=== PATIENT | female | born 1945 | race Caucasian/White ===

== ENCOUNTER 2019-06-19 09:39 | Observation (INO) | payer BC ==
[2019-06-19] MEDS ORDERED: MORPHINE SULFATE 5 MG/ML VIAL IVP ONE ×2 (09:46→10:49)
--- NOTE | 2019-06-19 09:52 | Emergency Department Record ---
History of Present Illness - General Chief Complaint: Back Pain/Injury Stated Complaint: BACK PAIN Time Seen by Provider: 06/19/19 09:45 Source: Patient, Family Mode of Arrival: Wheelchair Limitations: No limitations - History of Present Illness Initial Comments: 73 yo female presents with lower back pain that started yesterday. She felt the onset when she tried to stand up getting out of a chair. The pain has been present since that time. The pain is located in the lower lumbar area and radiates down the right leg at times. No numbness or tingling. No weakness. No radiation to the abdomen. No prior history of back surgery. No other recent changes in her health. She had an FL 7 months ago. Complaint: Back pain -: Days(s) (1) Place: Home Radiation: Right leg Quality: Aching, Sharp Consistency: Constant Improves With: Immobilization Worsens With: Movement, Sitting upright Context: Other (Onset when standing up from a chair yesterday) - Related Data Home Medications Medication Instructions Recorded Confirmed Last Taken Amlodipine Besylate [Norvasc] 1 tab PO DAILY 06/19/19 06/19/19 1 Day Ago ~06/18/19 1 Aspirin 1 tab PO DAILY 06/19/19 06/19/19 1 Day Ago ~06/18/19 1 Carvedilol [Coreg] 1 tab PO DAILY 06/19/19 06/19/19 1 Day Ago ~06/18/19 1 tab Cyclobenzaprine HCl [Flexeril] 1 tab PO DAILY PRN 06/19/19 06/19/19 1 Day Ago ~06/18/19 1 Furosemide [Lasix] 1 tab PO DAILY 06/19/19 06/19/19 1 Day Ago ~06/18/19 20 mg Levothyroxine Sodium 50 mcg PO 06/19/19 06/19/19 50 mcg Omeprazole [Prilosec] 1 tab PO DAILY 06/19/19 06/19/19 06/19/19 1 tab Rosuvastatin Calcium 1 tab PO DAILY 06/19/19 06/19/19 1 Day Ago ~06/18/19 1 Allergies Allergy/AdvReac Type Severity Reaction Status Date / Time Sulfa (Sulfonamide Allergy Intermediate SWELLING Verified 06/19/19 09:51 Antibiotics) OF THE FACE Review of Systems Constitutional: Denies: Chills, Fever, Malaise, Weakness Eyes: Denies: Eye discharge ENT: Denies: Congestion, Throat pain Respiratory: Denies: Cough, Dyspnea, Hemoptysis, Stridor, Wheezes Cardiovascular: Denies: Chest pain, Palpitations, Syncope Endocrine: Denies: Fatigue, Polydipsia, Polyuria Gastrointestinal: Denies: Abdominal pain, Diarrhea, Nausea, Vomiting Genitourinary: Denies: Dysuria, Hematuria, Urgency Musculoskeletal: Reports: Back pain, Myalgia. Denies: Arthralgia, Joint swelling Skin: Denies: Bruising, Change in color, Rash Neurological: Denies: Headache, Numbness, Tingling, Weakness Psychiatric: Denies: Anxiety Hematological/Lymphatic: Denies: Easy bleeding, Easy bruising Physical Exam - General General Appearance: Alert, Oriented x3, Cooperative, No acute distress Limitations: No limitations - Head Head exam: Atraumatic, Normocephalic, Normal inspection - Eye Eye exam: Normal appearance, PERRL. negative: Conjunctival injection, Scleral icterus - ENT ENT exam: Normal exam, Mucous membranes moist Ear exam: Normal external inspection Nasal Exam: Normal inspection Mouth exam: Normal external inspection - Neck Neck exam: Normal inspection - Respiratory Respiratory exam: Normal lung sounds bilaterally. negative: Accessory muscle use, Decreased breath sounds, Prolonged expiratory, Respiratory distress, Rhonchi, Stridor, Wheezes - Cardiovascular Cardiovascular Exam: Regular rate, Normal rhythm, Normal heart sounds - GI/Abdominal GI/Abdominal exam: Soft, Normal bowel sounds. negative: Distended, Guarding, Pulsatile mass, Rebound, Rigid, Tenderness - Rectal Rectal exam: Deferred - exam: Deferred - Extremities Extremities exam: Normal inspection, Full ROM. negative: Calf tenderness, Pedal edema, Tenderness - Back Back exam: Reports: Muscle spasm, Paraspinal tenderness, Tenderness, Vertebral tenderness (lower lumbar). Denies: CVA tenderness (R), CVA tenderness (L), Full ROM - Neurological Neurological exam: Alert, Oriented X3. negative: Motor sensory deficit (sensation intact bilateral distal lower extremities, Motor intact with EHL and foot flexion and extension) - Psychiatric Psychiatric exam: Normal affect, Normal mood - Skin Skin exam: Dry, Intact, Normal color, Warm Course - Reevaluation(s) Reevaluation #1: 06/19/19 10:29 The CBC was reviewed No acute significant abnormality 06/19/19 10:34 BMP reviewed. CR is 1.1 06/19/19 10:50 The patient was rechecked after CT. Her pain is not controlled after moving around for the CT. She has pain with rotating, sitting up 06/19/19 11:00 The patient now has epigatric pain. No chest pain. EKG ordered. Pain 6/10 in the back in the lumbar area. The epigastric area is very soft but mild tenderness in the LUQ. The lumbar pain is still completely reproducible with and movement or leg lift. Lumber pain with lifting the right leg 6 inches off the bed 06/19/19 11:10 EKG #1: 11:12 Rate: 90 Rhythm: sinus with PVC [place]: L Intervals: Qtc 481 ST segments: poor R wave progression, inverted lateral T waves. No ST elevation Prior: None on EMR Request for old EKG at [facility] made. 06/19/19 11:20 Lumbar pain down from 10 to 4/10 06/19/19 11:26 Prior EKG found in the paper file Similar Q waves inferior and poor R wave anterior with non specific lateral T waves on April 14 2008 EKG. No significant changes. 06/19/19 12:10 CT was reviewed. Spinal stenosis at L4-L5 with questionable irregular area at L3, Diverticuosis, liver cysts. The results were discussed with the patient with The need to follow up the results with her PCP and possible follow up MRI. The patient still has difficulty to stand or do a safe ADL with her pain and she lives alone I recommend admission for pain control and PT evaluation Medical Decision Making - Lab Data Result diagrams: 06/19/19 10:10 06/19/19 10:10 Disposition Disposition: Admit Clinical Impression: Lumbar pain, Sciatica, Intractable low back pain Disposition: Still a Patient at [facility] Decision to Admit: Admit from ER Decision to Admit Date: 06/19/19 Decision to Admit Time: 12:00 Condition: (2) Stable Forms: Patient Portal Access Time of Disposition: 12:46 Quality - Quality Measures Quality Measures: N/A - Blood Pressure Screening Does Patient Have Any of the Following: Active Dx of HTN Blood Pressure Classification: Hypertensive Reading Systolic Measurement: 154 Diastolic Measurement: 93 Screening for High Blood Pressure: Patient Exclusion, Hx of HTN [[id number]]
[2019-06-19 10:20] LABS: ABSOLUTE NEUTROPHIL COUNT 5.08; BASO % 0.5 % (0-6); EOS % 2.3 % (0-6); GRAN % 69.8 % (47-80); HEMATOCRIT 38.8 % (35.0-47.0); HEMOGLOBIN 12.4 gm/dl (11.6-16.0); LYMPH % 18.5 % (16-45); MEAN CORPUSCULAR HEMOGLOBIN 29.7 pg (27-33); MEAN PLATELET VOLUME 11.1 fl (7.4-10.4); MONO % 8.9 % (0-9); PLATELET COUNT 202 K/uL (130-400); RED BLOOD COUNT 4.17 M/uL (3.80-5.40); RED CELL DISTRIBUTION WIDTH 15.4 % (11.5-14.5); WHITE BLOOD COUNT W/O DIFF 7.3 K/uL (4.2-12.2)
[2019-06-19 10:28] LABS: CREATININE 1.1 mg/dL (0.5-0.9)
[2019-06-19] MEDS ORDERED: ACETAMINOPHEN 1,000 MG/100 ML BTL IVPB ONE (10:49)
[2019-06-19] MEDS ORDERED: MORPHINE SULFATE 5 MG/ML VIAL IVP PRN (13:15)
--- NOTE | 2019-06-19 13:25 | History & Physical ---
History of Present Illness - Date of Service Date of Service for History & Physical: 06/21/19 - History of Present Illness Admitting Diagnosis: sciatica, intractable back pain History of Present Illness: 73 yo female presents to [facility] ER for back pain x 2 days but worsening this AM and now not able to bear wgt. Pt lives alone, was able to get up this AM to urinate but not able to ambulates. pt called grandsons and they brought her by private vehicle to [facility] ER. 97.8l, HR 96, BP 154/93, RR 20, 100% RA, 8/10pain WBC 7.3, Hgb 12.4, Hct 38.8, Plt 202 Na 142, K 3.5, Cl 102, CO2 24, Anion Gap16, BUn 1.1, GFR 51, glucose 107 CT abd pelvis shows DDD, possible lesion to L2, recommending MRI follow up (PCP) and hepatic lesions also recommended MRI or CT with contrast (PCP) Pt given morphine 2mg for pain and reports improvement but right leg weak. Admit for pain control and unable to ambulate and lives alone 06/20/19 -Pt in bed, appears in mild distress, able to lift both right and left leg off the bed but right leg weakness noted, pain with extension and positive straight leg lift. No tenderness midline or paraspinal muscles but very TTP right sacral notch. Lungs CTA, heart RRR. No edema to lower extremities. POC pain medication, PT eval. UA ordered to r/o UTI [facility] Travel Screening - Travel/Exposure Within Last 30 Days Have you traveled within the last 30 days?: No - Travel/Exposure Within Last Year Have you traveled outside the [place] in the last year?: No - Additonal Travel Details Have you been exposed to anyone with a communicable illness?: No - Travel Symptoms Symptom Screening: Joint & Muscle Aches Review of Systems Constitutional: Denies: Chills, Fever, Malaise, Weakness Eyes: Denies: Eye discharge ENT: Denies: Congestion, Throat pain Respiratory: Denies: Cough, Dyspnea, Hemoptysis, Stridor, Wheezes Cardiovascular: Denies: Chest pain, Palpitations, Syncope Endocrine: Denies: Fatigue, Polydipsia, Polyuria Gastrointestinal: Denies: Abdominal pain, Diarrhea, Nausea, Vomiting Genitourinary: Denies: Dysuria, Hematuria, Urgency Musculoskeletal: Reports: Back pain, Myalgia. Denies: Arthralgia, Joint swelling Skin: Denies: Bruising, Change in color, Rash Neurological: Denies: Headache, Numbness, Tingling, Weakness Psychiatric: Denies: Anxiety Hematological/Lymphatic: Denies: Easy bleeding, Easy bruising Past Medical History - SOCIAL HISTORY Smoking Status: Never smoker Alcohol Use: None Drug Use: None - RESPIRATORY Hx Respiratory Disorders: No - CARDIOVASCULAR Hx Cardio Disorders: Yes Hx Heart Attack: Yes (11/09/18) - NEURO Hx Neuro Disorders: No - GI Hx GI Disorders: Yes Hx Reflux: Yes - Hx Genitourinary Disorders: No - ENDOCRINE Hx Endocrine Disorders: Yes Hx Thyroid Disease: Yes - MUSCULOSKELETAL Hx Musculoskeletal Disorders: No - PSYCH Hx Psych Problems: No - HEMATOLOGY/ONCOLOGY Hx Hematology/Oncology Disorders: No Family Medical History Any Significant Family History?: No H&P Meds/Allergies - Allergies Allergies: Allergies Allergy/AdvReac Type Severity Reaction Status Date / Time Sulfa (Sulfonamide Allergy Intermediate SWELLING Verified 06/19/19 09:51 Antibiotics) OF THE FACE - Home Medications Home Medications Medication Instructions Recorded Confirmed Last Taken Amlodipine Besylate [Norvasc] 5 mg PO DAILY 06/19/19 06/21/19 1 Day Ago ~06/18/19 1 Aspirin 81 mg PO QHS 06/19/19 06/21/19 1 Day Ago ~06/18/19 1 Carvedilol [Coreg] 6.25 mg PO DAILY 06/19/19 06/21/19 1 Day Ago ~06/18/19 1 tab Cyclobenzaprine HCl [Flexeril] 10 mg PO DAILY PRN 06/19/19 06/21/19 1 Day Ago ~06/18/19 1 Furosemide [Lasix] 20 mg PO DAILY 06/19/19 06/21/19 1 Day Ago ~06/18/19 20 mg Levothyroxine Sodium 50 mcg PO DAILY 06/19/19 06/19/19 06/19/19 21:47 50 MCG Omeprazole [Prilosec] 20 mg PO DAILYAC 06/19/19 06/21/19 06/19/19 1 tab Rosuvastatin Calcium 5 mg PO QHS 06/19/19 06/21/19 1 Day Ago ~06/18/19 1 - Active Medications Active Medications: Current Medications Amlodipine Besylate (Norvasc) mg PO DAILY [facility] Aspirin (Aspirin Chewable) mg PO DAILY [facility] Cyclobenzaprine HCl (Flexeril) mg PO DAILY PRN PRN Reason: MUSCLE SPASMS Furosemide (Lasix) mg PO DAILY [facility] Acetaminophen (Ofirmev) 1,000 mg in 100 mls @ 400 mls/hr IVPB Q6H [facility] Morphine Sulfate (Morphine Sulfate) 4 mg IVP Q4H PRN PRN Reason: PAIN - MILD (1-4) Stop: 06/26/19 13:16 Non-Formulary Medication (Carvedilol [Coreg]) 1 tab PO DAILY [facility] Non-Formulary Medication (Omeprazole) 1 tab PO DAILY [facility] Non-Formulary Medication (Rosuvastatin Calcium [Rosuvastatin Calcium]) 1 tab PO DAILY [facility] Physical Exam - Vital Signs Vital Signs: Vital Signs - Last 24 Hrs Temp Pulse Pulse Resp BP BP Pulse Ox 06/19/19 11:08 98.4 F 91 H 20 149/86 97 06/19/19 10:58 89 20 142/99 99 06/19/19 10:00 97.8 F 96 H 20 154/93 100 06/19/19 09:46 97.8 F 96 H 20 154/93 100 - General General Appearance: Alert, Oriented x3, Cooperative, Mild distress Limitations: No limitations - Head Head exam: Atraumatic, Normocephalic, Normal inspection - Eye Eye exam: Normal appearance, PERRL. negative: Conjunctival injection, Scleral icterus - ENT ENT exam: Normal exam, Mucous membranes moist Ear exam: Normal external inspection Nasal Exam: Normal inspection Mouth exam: Normal external inspection - Neck Neck exam: Normal inspection - Respiratory Respiratory exam: Normal lung sounds bilaterally. negative: Accessory muscle use, Decreased breath sounds, Prolonged expiratory, Respiratory distress, Rhonchi, Stridor, Wheezes - Cardiovascular Cardiovascular Exam: Regular rate, Normal rhythm, Normal heart sounds Peripheral Pulses: 3+: Radial (R), Radial (L), Dorsalis Pedis (R), Dorsalis Pedis (L) - GI/Abdominal GI/Abdominal exam: Soft, Normal bowel sounds. negative: Distended, Guarding, Pulsatile mass, Rebound, Rigid, Tenderness - Rectal Rectal exam: Deferred - exam: Deferred - Extremities Extremities exam: Normal inspection, Full ROM. negative: Calf tenderness, Pedal edema, Tenderness - Back Back exam: Reports: Muscle spasm, Tenderness (right sacral notch), Vertebral tenderness (lower lumbar). Denies: CVA tenderness (R), CVA tenderness (L), Full ROM, Paraspinal tenderness - Neurological Neurological exam: Alert, Oriented X3. negative: Motor sensory deficit (sensation intact bilateral distal lower extremities, Motor intact with EHL and foot flexion and extension) - Psychiatric Psychiatric exam: Normal affect, Normal mood - Skin Skin exam: Dry, Intact, Normal color, Warm Results - Labs Result Diagrams: 06/19/19 10:10 06/19/19 10:10 Labs Last 24 Hours: Laboratory Results - last 24 hr 06/19/19 06/19/19 10:10 10:10 WBC 7.3 RBC 4.17 Hgb 12.4 Hct 38.8 MCV 93.0 MCH 29.7 MCHC 32.0 RDW 15.4 H Plt Count 202 MPV 11.1 H Gran % 69.8 Lymphocytes % 18.5 Monocytes % 8.9 Eosinophils % 2.3 Basophils % 0.5 Absolute Neutrophils 5.08 Sodium 142 Potassium 3.5 Chloride 102 Carbon Dioxide 24.0 Anion Gap 16.0 BUN 15 Creatinine 1.1 H Estimated GFR 51 Random Glucose 107 Calcium 9.8 VTE H&P Assessment - Risk for VTE Risk for VTE: Yes Risk Level: Moderate Risk Assessment Date: 06/19/19 Risk Assessment Time: 15:00 VTE Orders Placed or Will Be Placed: Yes Plan - Detailed Diagnosis and Plan (1) Intractable low back pain Current Visit: Yes Status: Acute Base Code: M54.5 - LOW BACK PAIN Comment: 06/19/19 -pt reported sudden onset low back pain starting within 24 hrs of arriving to ER -pt denies previous injury, no recent fall or strain -CT back shows DDD with possible T3 lesion, recomend MRI for follow up (PCP) -pt given morphine for pain in ER, but unable to ambualte r/t pain (2) Sciatica Current Visit: Yes Status: Acute Base Code: M54.30 - SCIATICA, UNSPECIFIED SIDE Comment: 06/19/19 -pt has radiating right sided pain, radiating down buttock and lateral leg -adding gabapentin 300mg QHS, cont morphine with addition of gabapentin (3) DVT prophylaxis Current Visit: Yes Status: Acute Base Code: Z29.9 - ENCOUNTER FOR PROPHYLACTIC MEASURES, UNSPECIFIED Comment: 06/19/19 -lovenox 30mg SQ (lower dose r/t kidney function) (4) Full code status Current Visit: Yes Status: Acute Base Code: Z78.9 - OTHER SPECIFIED HEALTH STATUS Comment: 06/19/19 -full code
[2019-06-19] MEDS: ACETAMINOPHEN 1,000 MG/100 ML BTL IVPB SCH ×2 (14:15→20:29)
[2019-06-19] MEDS: PREDNISONE 20 MG TAB PO SCH (14:38)
[2019-06-19 14:39] LABS: URINE APPEARANCE CLEAR; URINE BILIRUBIN NEGATIVE (NEGATIVE); URINE BLOOD TRACE-I (NEGATIVE); URINE COLOR YELLOW; URINE GLUCOSE (UA) NEGATIVE (NEGATIVE); URINE KETONE TRACE (NEGATIVE); URINE NITRITE NEGATIVE (NEGATIVE); URINE PROTEIN NEGATIVE (NEGATIVE)
[2019-06-19 14:44] LABS: URINE LEUKOCYTE ESTERASE TRACE (NEGATIVE)
[2019-06-19 14:46] LABS: URINE BACTERIA NONE SEEN; URINE RBC 0 - 2 (NONE SEEN); URINE WBC 0 - 2 (0-2/hpf)
[2019-06-19] MEDS: CYCLOBENZAPRINE 10MG TABLET PO PRN (18:11)
[2019-06-19] MEDS: CARVEDILOL 3.125 MG TABLET PO SCH (21:41)
[2019-06-19] MEDS ORDERED: GABAPENTIN 300 MG CAPSULE PO SCH (22:00)
[2019-06-20] MEDS: ACETAMINOPHEN 1,000 MG/100 ML BTL IVPB SCH ×4 (01:37→19:37)
[2019-06-20] MEDS: PREDNISONE 20 MG TAB PO SCH (07:03)
[2019-06-20] MEDS: PANTOPRAZOLE SODIUM 40 MG TABLET PO SCH (07:03)
[2019-06-20] MEDS: LEVOTHYROXINE SODIUM 50 MCG TABLET PO SCH (07:03)
[2019-06-20] MEDS: CARVEDILOL 3.125 MG TABLET PO SCH (09:25)
[2019-06-20] MEDS: FUROSEMIDE 20 MG TABLET PO SCH (09:25)
[2019-06-20] MEDS: AMLODIPINE BESYLATE 5MG TAB PO SCH (09:26)
[2019-06-20] MEDS: ATORVASTATIN 20 MG TABLET PO SCH ×2 (09:26→22:01)
[2019-06-20] MEDS: ENOXAPARIN 30 MG/0.3 ML SYR SQ SCH (09:26)
[2019-06-20] MEDS ORDERED: ASPIRIN 81 MG CHEWABLE TABLET PO SCH (10:00)
--- NOTE | 2019-06-20 10:54 | Physician Progress Note ---
Subjective - Date Date of Physician Progress Note: 06/21/19 - Subjective Subjective Comment: pt reports pain is improving but still needing assistance up, out of bed and to the toilet -pt still radiating down the right side of leg but has improved since addition of gabapentin yesterday Objective - Vital Signs Vital Signs: Vital Signs - Last 24 Hrs Temp Pulse Resp BP Pulse Ox 06/20/19 05:00 97.8 F 87 18 120/77 96 06/19/19 19:51 98.1 F 100 H 18 128/71 97 06/19/19 15:13 57 L 18 06/19/19 12:58 98.0 F 57 L 18 124/79 97 06/19/19 11:08 98.4 F 91 H 20 149/86 97 06/19/19 10:58 89 20 142/99 99 - General General Appearance: Alert, Oriented x3, Cooperative, No acute distress Limitations: No limitations - Head Head exam: Atraumatic, Normocephalic, Normal inspection - Eye Eye exam: Normal appearance, PERRL. negative: Conjunctival injection, Scleral icterus - ENT ENT exam: Normal exam, Mucous membranes moist Ear exam: Normal external inspection Nasal Exam: Normal inspection Mouth exam: Normal external inspection - Neck Neck exam: Normal inspection - Respiratory Respiratory exam: Normal lung sounds bilaterally. negative: Accessory muscle use, Decreased breath sounds, Prolonged expiratory, Respiratory distress, Rhonchi, Stridor, Wheezes - Cardiovascular Cardiovascular Exam: Regular rate, Normal rhythm, Normal heart sounds - GI/Abdominal GI/Abdominal exam: Soft, Normal bowel sounds. negative: Distended, Guarding, Pulsatile mass, Rebound, Rigid, Tenderness - Rectal Rectal exam: Deferred - exam: Deferred - Extremities Extremities exam: Normal inspection, Full ROM. negative: Calf tenderness, Pedal edema, Tenderness - Back Back exam: Reports: Muscle spasm, Paraspinal tenderness, Tenderness, Vertebral tenderness (lower lumbar). Denies: CVA tenderness (R), CVA tenderness (L), Full ROM - Neurological Neurological exam: Alert, Oriented X3. negative: Motor sensory deficit (sensation intact bilateral distal lower extremities, Motor intact with EHL and foot flexion and extension) - Psychiatric Psychiatric exam: Normal affect, Normal mood - Skin Skin exam: Dry, Intact, Normal color, Warm Assessment and Plan - Assessment and Plan (1) Intractable low back pain Current Visit: Yes Status: Acute Base Code: M54.5 - LOW BACK PAIN Comment: 06/19/19 -pt reported sudden onset low back pain starting within 24 hrs of arriving to ER -pt denies previous injury, no recent fall or strain -CT back shows DDD with possible T3 lesion, recomend MRI for follow up (PCP) -pt given morphine for pain in ER, but unable to ambualte r/t pain 06/20/19 -pt reports better pain control with gabapentin but still painful to ambulate and TTP -gabapenting increased to BID, pt continues to need morphine for pain upon returning from wgt bearing -PT eval tomorrow (2) Sciatica Current Visit: Yes Status: Acute Base Code: M54.30 - SCIATICA, UNSPECIFIED SIDE Comment: 06/19/19 -pt has radiating right sided pain, radiating down buttock and lateral leg -adding gabapentin 300mg QHS, cont morphine with addition of gabapentin 06/20/19 -pt reports gabapentin has helped pain but not resolved or controlled enough to perform ADLs -increase gabapentin 300mg BID (3) DVT prophylaxis Current Visit: Yes Status: Acute Base Code: Z29.9 - ENCOUNTER FOR PROPHYLACTIC MEASURES, UNSPECIFIED Comment: 06/20/19 -lovenox 30mg SQ (lower dose r/t kidney function) (4) Full code status Current Visit: Yes Status: Acute Base Code: Z78.9 - OTHER SPECIFIED HEALTH STATUS Comment: 06/20/19 -full code Results - Labs Result Diagrams: 06/19/19 10:10 06/19/19 10:10 Labs Last 24 Hours: Laboratory Results - last 24 hr 06/19/19 14:30 Urine Color Yellow Urine Appearance Clear Urine pH 6.5 Ur Specific [place] 1.020 Urine Protein Negative Urine Glucose (UA) Negative Urine Ketones Trace H Urine Blood Trace-i Urine Nitrite Negative Urine Bilirubin Negative Urine Urobilinogen 4.0 H Ur Leukocyte Esterase Trace H Urine RBC 0 - 2 Urine WBC 0 - 2 Ur Epithelial Cells 3 - 6 Urine Bacteria None seen - Imaging and Cardiology CT scan - abdomen Status: Report reviewed DVT/PE Assessment - Risk for VTE Risk for VTE: Yes Risk Level: Moderate Risk Assessment Date: 06/19/19 Risk Assessment Time: 15:00 VTE Orders Placed or Will Be Placed: Yes - Active Medicaitons Current Medications: Current Medications Amlodipine Besylate (Norvasc) 5 mg PO DAILY [facility] Last Admin: 06/20/19 09:26 Dose: 5 mg Documented by: Aspirin (Aspirin Chewable) 81 mg PO DAILY [facility] Last Admin: 06/20/19 09:25 Dose: 81 mg Documented by: Atorvastatin Calcium (Lipitor) 20 mg PO QHS [facility] Last Admin: 06/20/19 09:26 Dose: Not Given Documented by: Carvedilol (Coreg) 6.25 mg PO DAILY [facility] Last Admin: 06/20/19 09:25 Dose: 6.25 mg Documented by: Cyclobenzaprine HCl (Flexeril) 10 mg PO DAILY PRN PRN Reason: MUSCLE SPASMS Last Admin: 06/19/19 18:11 Dose: 10 mg Documented by: Enoxaparin Sodium (Lovenox) 30 mg SQ DAILY [facility] Last Admin: 06/20/19 09:26 Dose: 30 mg Documented by: Furosemide (Lasix) 20 mg PO DAILY [facility] Last Admin: 06/20/19 09:25 Dose: 20 mg Documented by: Gabapentin (Neurontin) 300 mg PO QHS [facility] Last Admin: 06/19/19 21:40 Dose: 300 mg Documented by: Acetaminophen (Ofirmev) 1,000 mg in 100 mls @ 400 mls/hr IVPB Q6H [facility] Last Infusion: 06/20/19 07:25 Dose: Infused Documented by: Levothyroxine Sodium (Synthroid) 50 mcg PO DAILYTHY [facility] Last Admin: 06/20/19 07:03 Dose: 50 mcg Documented by: Morphine Sulfate (Morphine Sulfate) 4 mg IVP Q4H PRN PRN Reason: PAIN - MILD (1-4) Stop: 06/26/19 13:16 Last Admin: 06/19/19 18:09 Dose: 4 mg Documented by: Pantoprazole Sodium (Protonix) 40 mg PO DAILYAC [facility] Last Admin: 06/20/19 07:03 Dose: 40 mg Documented by: Prednisone (Prednisone 20mg) 40 mg PO DAILYWM [facility] Last Admin: 06/20/19 07:03 Dose: 40 mg Documented by: AMI Plan - Labs Result Diagrams: 06/19/19 10:10 06/19/19 10:10
[2019-06-20] MEDS ORDERED: MORPHINE SULFATE 5 MG/ML VIAL IVP PRN (11:03)
[2019-06-20] MEDS: GABAPENTIN 300 MG CAPSULE PO SCH ×2 (11:10→22:01)
[2019-06-20] MEDS: CYCLOBENZAPRINE 10MG TABLET PO PRN (11:10)
--- NOTE | 2019-06-20 19:57 | CT SCAN REPORT ---
EXAM: CT SCAN ABDOMEN/PELVIS WO CONTRAST HISTORY: RIGHT-SIDED LOW BACK PAIN RADIATING TO THE RIGHT LEG. TECHNIQUE: CT of the abdomen and pelvis is performed without intravenous or oral contrast. COMPARISON: None. FINDINGS: Postsurgical changes right lung base. Lung bases otherwise unremarkable. Multiple low-density liver lesions are present, which are not optimally assessed without contrast. These may represent cysts. Contrast-enhanced CT or MRI may be of benefit for further assessment. Liver otherwise unremarkable. Spleen unremarkable. No pancreatic mass or inflammatory change. The bile ducts are not dilated. Gallbladder is surgically absent. There is no adrenal lesion seen. There are no renal or ureteral calculi. No hydronephrosis. No perinephric mass or fluid collection. There are atherosclerotic changes in the abdominal aorta. There is no aneurysm. No periaortic mass or adenopathy. There is a retroaortic left renal vein. There are no dilated bowel loops. There is no CT evidence for appendicitis. There is diverticulosis without CT evidence for diverticulitis. There are arthritic changes in the lumbar spine with anterior subluxation of L4 on L5. There is spinal stenosis seen at the L4-5 level. There is a round lesion identified in the right L3 vertebral body. This measures about 12 mm in size. This could represent a hemangioma. Other lesions not excluded. MRI could be performed for further assessment. IMPRESSION: 1. NO ACUTE ABDOMINAL OR PELVIC PROCESS IDENTIFIED. 2. SPINAL STENOSIS AT THE L4-5 LEVEL. 3. ARTHRITIC CHANGES IN THE LUMBAR SPINE. POSSIBLE LESION IN THE L3 VERTEBRAL BODY. MRI COULD BE PERFORMED FOR FURTHER ASSESSMENT. 4. MULTIPLE HEPATIC LESIONS, LIKELY REPRESENTING CYSTS BUT NOT DEFINITIVELY ASSESSED WITHOUT CONTRAST. CONTRAST-ENHANCED EXAM OR MRI COULD BE PERFORMED. 5. POSTSURGICAL CHANGES RIGHT LUNG BASE. 6. DIVERTICULOSIS WITHOUT CT EVIDENCE FOR DIVERTICULITIS. 7. PLEASE SEE ABOVE FOR FULL DISCUSSION. JOB NUMBER: [id number] MTDD
[2019-06-21] MEDS: ACETAMINOPHEN 1,000 MG/100 ML BTL IVPB SCH ×3 (01:33→14:39)
[2019-06-21] MEDS: PREDNISONE 20 MG TAB PO SCH (07:15)
[2019-06-21] MEDS: LEVOTHYROXINE SODIUM 50 MCG TABLET PO SCH (07:16)
[2019-06-21] MEDS: PANTOPRAZOLE SODIUM 40 MG TABLET PO SCH (07:17)
[2019-06-21] MEDS: ENOXAPARIN 30 MG/0.3 ML SYR SQ SCH (09:39)
[2019-06-21] MEDS: GABAPENTIN 300 MG CAPSULE PO SCH (09:40)
[2019-06-21] MEDS: FUROSEMIDE 20 MG TABLET PO SCH (09:40)
[2019-06-21] MEDS: CARVEDILOL 3.125 MG TABLET PO SCH (09:40)
[2019-06-21] MEDS: AMLODIPINE BESYLATE 5MG TAB PO SCH (09:40)
--- NOTE | 2019-06-21 10:33 | Rehab Evaluation ---
Patient Information - Patient Information Diagnosis: Sciatica, intractable back pain Ordered Treatment: PT Evaluate and Treat Status: Initial Evaluation History: Detail (The patient presented in ED on 06/19/19 with complaints of lower back pain and was unable to walk.) Past Medical/Surgical Hx: PAST MEDICAL/SURGICAL HISTORY Past Surgical History hysterectomy, gallbladder, left and right shoulder,biopsy of lungs, bilateral cataracts PMH - Respiratory Hx Respiratory Disorders No Comment: bilateral lung biopsies PMH - Cardiovascular Hx Cardiovascular Disorders Yes Hx Cardiac Catheterization Yes: ?stent placed, dr owens Hx Heart Attack Yes: 11/09/18 PMH - Neuro Hx Neurological Disorders No PMH - GI Hx Gastrointestinal Disorders Yes Hx Gastroesophageal Reflux Yes PMH - Hx Genitourinary Disorders No Patient No PMH - Endocrine Hx Endocrine Disorders Yes Hx Diabetes No Hx Thyroid Disease Yes PMH - Musculoskeletal Hx Musculoskeletal Disorders No Hx Back Injury back pain PMH - Psych Hx Psychiatric Problems No PMH - Hematology/Oncology Hx Hematology/Oncology No Disorders Premorbid Status: Detail (Prior to admission the patient was ambulating independently without assistive device and completing all ADL's independently. The patient had assistance for some radiology rn including vaccuuming.) Social History: Detail (The patient lives alone in a one story house with a base ment with 3 steps at both enterances with one railing at the front enterance and a grab bar at the rear enterance. The bathroom the patient uses has a walk in shower with a seat and an elevated toilet seat. There are no grab bars in the bathroom. The patient has a 4 wheeled walker and a couple straight canes.) Precautions: [place], Fall, Other (Back pain precautions ie: no twisting, bending and log rolling with bed mobility) - Time With Patient Total Time Spent With Patient (Min): 30 Treatment Procedures: Detail (Initial Evaluation, low complexity.) Subjective Information - Subjective Information Per Patient (The patient complained of bilateral lower back pain L4 to S1 region. Initially the patient complained of R LE radiating pain, additionally to lower back pain.) Objective Data - Pain Pain Present: Yes Pain Intensity: 3 Pain Scale Used: Numeric (1 - 10) - Mental Status Patient Orientation: Oriented x3 - Visual Perception Appears within normal limits for therapeutic activities - ROM Within normal limits (The patient's LE AROM was WNL except for R ankle AROM to neutral.) - Strength/Tone Not within normal limits (The patient's L LE strength was generally 4+ to 5/5. The patient's R LE strength was 4-/5, knee extensors 4/5, flexors 4-/5, ankle musculature 3+ to 4-/5.) - Bed Mobility Independent (The patient was indpendent with supine to and from sit with verbal cues to log roll.) - Transfers Independent (The patient was independent with sit to and from stand transfer with slow guarded movements.) - Balance Balance Sitting: Good Balance Standing: Fair (Due to lower back pain the patient required the support of the walker for standing.) - Gait Detail (The patient ambulated 22 feet x 1 with front wheeled walker with supervision for safety. The patient ambulated with shuffling steps and slow gaurded movements.) Therapy Assessment - Therapy Assessment Detail (The patient is independent with mobility however all movements are slow and gaurded. The patient exhibits decreased R LE strength and ambulates limited distances due to lower back pain. Due to guarded movements and continued R LE strength deficits supervision at home is recommended. Ongoing Home PT is also recommended to assess the patient's safety of mobility at home and LE strengthening and core exercises, pain management techniques to decrease lower back pain. If the patient does not have someone to supervise her at home, short subacute rehab stay would be recommended.) Problem List - Problem List Physical Therapy Problem List: Detail (1) Decreased LE strength 2) Lumbar pain 3) Impaired ambulation due to Lumbar pain 4) Limited ambulation distances due to lumbar pain) Goals - Goals Physical Therapy Goals: 1) The patient will be independent with all transfers and bed mobility without gaurded movements. 2) The patient will ambulate household distances independently with appropriate assistive device without guarded movements. 3) The patient will ambulate on stairs independently using appropriate technique. Plan - Plan Physical Therapy Plan: PT daily M-F for gait and transfer training, pain management techniques for lower back pain,R LE strengthening and core exercises.
--- NOTE | 2019-06-21 10:42 | Rehab Evaluation ---
Patient Information - Patient Information Diagnosis: sciatica, intractable back pain Ordered Treatment: OT Evaluate and Treat Status: Initial Evaluation Surgery: No Past Medical/Surgical Hx: PAST MEDICAL/SURGICAL HISTORY Past Surgical History hysterectomy, gallbladder, left and right shoulder,biopsy of lungs, bilateral cataracts PMH - Respiratory Hx Respiratory Disorders No Comment: bilateral lung biopsies PMH - Cardiovascular Hx Cardiovascular Disorders Yes Hx Cardiac Catheterization Yes: ?stent placed, dr owens Hx Heart Attack Yes: 11/09/18 PMH - Neuro Hx Neurological Disorders No PMH - GI Hx Gastrointestinal Disorders Yes Hx Gastroesophageal Reflux Yes PMH - Hx Genitourinary Disorders No Patient No PMH - Endocrine Hx Endocrine Disorders Yes Hx Diabetes No Hx Thyroid Disease Yes PMH - Musculoskeletal Hx Musculoskeletal Disorders No Hx Back Injury back pain PMH - Psych Hx Psychiatric Problems No PMH - Hematology/Oncology Hx Hematology/Oncology No Disorders Premorbid Status: Detail (Pt lives alone in a 1 story house. She has 3 steps at both entrances with a hand rail at the front and a grab bar at the rear. She has a walk in shower with a seat and hand held shower as well as a tub/shower combination. She has an elevated toilet and a standard height toilet. There are no grab bars in the bathroom. She typicaly ambulates without an assistive device but has a 4 wheeled walker and multiple straight canes. She is responsible for laundry, meal prep, dishes, making her bed and light home mgmt. Her grand daughter assists with heavy housework and using the vacuum.) Social History: Detail (Pt has a supportive family.) Precautions: [place], Fall - Time With Patient Total Time Spent With Patient (Min): 25 Treatment Procedures: Detail (OT eval low complexity) Subjective Information - Subjective Information Per Patient Objective Data - Pain Pain Present: Yes (11/22) - Mental Status Patient Orientation: Oriented x3 - Visual Perception Appears within normal limits for therapeutic activities - ROM Not within normal limits (Shoaib UE AROM WNL with exception of right shoulder flexion which was limited to approx. 45 degrees due to injury from many years ago.) - Strength/Tone Not within normal limits (Left UE MMT 4+/5, right shoulder 3-/5, right elbow not tested as pt reports it will increase her shoulder pain, right editing clerk 4+/5) - Coordination Appears within normal limits for therapeutic activities - Bed Mobility Independent (Ind with supine to sit although pt had some increased pain with mobility.) - Transfers Independent (Ind with sit to stand with increased back pain) - Balance Balance Sitting: Good Balance Standing: Good - Sensation Intact (Intact sensation shoaib UEs) - Gait Detail (Pt able to walk a short distance with 2 wheeled walker before increase in back pain.) - ADL's/IADL's Detail (Pt able to demonstrate doffing and donning of slipper socks Indly. She reports she has been toileting with supervision from nursing.) Therapy Assessment - Therapy Assessment Detail (Pt presents with decreased Ind with self cares and functional mobility due to back pain.) Problem List - Problem List Occupational Therapy Problem List: Detail (1. Decreased Ind with self cares due to increased back pain) Goals - Goals Occupational Therapy Goals: 1. Pt will be Ind with total body dressing and showering Prognosis - Prognosis Good Plan - Plan Occupational Therapy Plan: OT 2-4 times per week to address self cares as above.
[2019-06-21] MEDS ORDERED: HYDROCODONE/APAP 5/325MG TABLET PO PRN (15:50)
--- NOTE | 2019-06-21 16:01 | Discharge Summary ---
Providers Discharge Summary Date: 06/21/19 Date of admission: 06/19/19 12:51 Expected Date of Discharge: 06/21/19 Attending physician: MALLORY MOODY Primary care physician: RADHA HASSAN D.O. Physical Exam - Vital Signs Vital Signs: Vital Signs - Last 24 Hrs Temp Pulse Pulse Resp BP Pulse Ox 06/21/19 08:02 70 06/21/19 05:00 97.7 F 79 18 106/50 98 06/20/19 21:00 78 18 96 - General General Appearance: Alert, Oriented x3, Cooperative, No acute distress Limitations: No limitations - Head Head exam: Atraumatic, Normocephalic, Normal inspection - Eye Eye exam: Normal appearance, PERRL. negative: Conjunctival injection, Scleral icterus - ENT ENT exam: Normal exam, Mucous membranes moist Ear exam: Normal external inspection Nasal Exam: Normal inspection Mouth exam: Normal external inspection - Neck Neck exam: Normal inspection - Respiratory Respiratory exam: Normal lung sounds bilaterally. negative: Accessory muscle use, Decreased breath sounds, Prolonged expiratory, Respiratory distress, Rhonchi, Stridor, Wheezes - Cardiovascular Cardiovascular Exam: Regular rate, Normal rhythm, Normal heart sounds Peripheral Pulses: 3+: Radial (R), Radial (L), Dorsalis Pedis (R), Dorsalis Pedis (L) - GI/Abdominal GI/Abdominal exam: Soft, Normal bowel sounds. negative: Distended, Guarding, Pulsatile mass, Rebound, Rigid, Tenderness - Rectal Rectal exam: Deferred - exam: Deferred - Extremities Extremities exam: Normal inspection, Full ROM. negative: Calf tenderness, Pedal edema, Tenderness - Back Back exam: Reports: Muscle spasm, Paraspinal tenderness, Tenderness, Vertebral tenderness (lower lumbar). Denies: CVA tenderness (R), CVA tenderness (L), Full ROM - Neurological Neurological exam: Alert, Oriented X3. negative: Motor sensory deficit (sensation intact bilateral distal lower extremities, Motor intact with EHL and foot flexion and extension) - Psychiatric Psychiatric exam: Normal affect, Normal mood - Skin Skin exam: Dry, Intact, Normal color, Warm Hospitalization - Hospitalization Admission Diagnosis: sciatica, intractable back pain - Problem List/Discharge Diagnosis (1) Intractable low back pain Current Visit: Yes Status: Acute Base Code: M54.5 - LOW BACK PAIN Comment: 06/21/19 -PT has evaluated, needs subacute rehab or home PT -pt has insurance issues with facilities taking her insurance, [employer] Supervisor attempting to find home health care as this facility does not take her insurance and pt has declined transfer to other facility -pain better controlled but right leg remains weaker 06/20/19 -pt reports better pain control with gabapentin but still painful to ambulate and TTP -gabapenting increased to BID, pt continues to need morphine for pain upon returning from [facility] -PT eval tomorro 06/19/19 -pt reported sudden onset low back pain starting within 24 hrs of arriving to ER -pt denies previous injury, no recent fall or strain -CT back shows DDD with possible T3 lesion, recomend MRI for follow up (PCP) -pt given morphine for pain in ER, but unable to ambualte r/t pain w (2) Sciatica Current Visit: Yes Status: Acute Base Code: M54.30 - SCIATICA, UNSPECIFIED SIDE Comment: 06/21/19 -pt reports improvment with BID gabapenting dosing -pt to f/u with home PT and PCP this week 06/20/19 -pt reports gabapentin has helped pain but not resolved or controlled enough to perform ADLs -increase gabapentin 300mg BID 06/19/19 -pt has radiating right sided pain, radiating down buttock and lateral leg -adding gabapentin 300mg QHS, cont morphine with addition of gabapentin (3) DVT prophylaxis Current Visit: Yes Status: Acute Base Code: Z29.9 - ENCOUNTER FOR [place] OPHYLACTIC MEASURES, UNSPECIFIED Comment: 06/21/19 -lovenox 30mg SQ (lower dose r/t kidney function) (4) Full code status Current Visit: Yes Status: Acute Base Code: Z78.9 - OTHER SPECIFIED HEALTH STATUS Comment: 06/21/19 -full code - Hospitalization Course Procedures: Imaging and X-Rays 06/19/19 10:21 ABDOMEN/PELVIS WO CONTRAST [CT] Stat Cardiology Procedures 06/19/19 10:49 Subsurface Augmentee Operator NOW 06/19/19 11:00 EKG NOW 06/19/19 13:15 Subsurface Augmentee Operator .Continuous Abnormal Labs: Abnormal Lab Results 06/19/19 06/19/19 06/19/19 Range/Units 10:10 10:10 14:30 RDW 15.4 H (11.5-14.5) % MPV 11.1 H (7.4-10.4) fl Creatinine 1.1 H (0.5-0.9) mg/dL Urine Ketones Trace H (NEGATIVE) Urine Urobilinogen 4.0 H (0.20 - 1.00) E.U./dL Ur Leukocyte Esterase Trace H (NEGATIVE) Condition at Discharge: (2) Stable Discharge Medications - Discharge Medications Prescriptions: Gabapentin [Neurontin] 300 mg PO BID 2 Days #4 capsule Hydrocodone/APAP 5/325Mg [Veneta 5Mg/325Mg] 1 each PO Q6H PRN 1 Days #3 tab PRN Reason: Pain - Mild To Moderate (1-7) Prednisone [Prednisone 20Mg] 40 mg PO DAILYWM 3 Days #3 tab Home Medications: Ambulatory Orders Amlodipine Besylate [Norvasc] 5 mg PO DAILY 06/19/19 [Last Taken 1 Day Ago ~06/18/19 1] Aspirin 81 mg PO QHS 06/19/19 [Last Taken 1 Day Ago ~06/18/19 1] Carvedilol [Coreg] 6.25 mg PO DAILY 06/19/19 [Last Taken 1 Day Ago ~06/18/19 1 tab] Cyclobenzaprine HCl [Flexeril] 10 mg PO DAILY PRN 06/19/19 [Last Taken 1 Day Ago ~06/18/19 1] Furosemide [Lasix] 20 mg PO DAILY 06/19/19 [Last Taken 1 Day Ago ~06/18/19 20 mg] Levothyroxine Sodium 50 mcg PO DAILY 06/19/19 [Last Taken 06/19/19 21:47 50 MCG] Omeprazole [Prilosec] 20 mg PO DAILYAC 06/19/19 [Last Taken 06/19/19 1 tab] Rosuvastatin Calcium 5 mg PO QHS 06/19/19 [Last Taken 1 Day Ago ~06/18/19 1] Gabapentin [Neurontin] 300 mg PO BID 2 Days #4 capsule 06/21/19 [Last Taken Unknown] Hydrocodone/APAP 5/325Mg [Veneta 5Mg/325Mg] 1 each PO Q6H PRN 1 Days #3 tab 06/21/19 [Last Taken Unknown] Prednisone [Prednisone 20Mg] 40 mg PO DAILYWM 3 Days #3 tab 06/21/19 [Last Taken Unknown] Discharge Plan - Discharge Instructions Activity at Discharge: As Per Physical Therapy, Increase Activity as Tolerated Diet at Discharge: Advance to Usual Diet Additional Instructions: You have a follow up appointment with Dr Hassan on 06/22/19 at 8:25am for 8:40 appointment [facility] health care will contact you regarding home health care. Your CT shows some areas that need more testing. It is recommended that you get a MRI to investigate the lesion on your back and the possible cysts on the liver. The CT was not able to identify what these were, that is why the MRI will help to get a better picture of these areas. You have been prescribed pain medication, gabapenting and norco. These are controlled substances, keep them in a secure place, do not share or give them to anyone, and do not drink alcohol while taking them. You are not allowed to drive when taking the norco. Quality Measures - Quality Measures Quality Measures: Advance Directives, Documentation of Current Medications in Medical Record, Elder Maltreatment Screen and Follow-Up Plan, Screening for High Blood Pressure and F/U Documented - Current Medications Quality Measure: Measure #130: Documentation of Current Medications Documentation of Current Medications: <Current Medications Documented/Reviewed> [G8427] - Blood Pressure Screening Quality Measure: Screening for High Blood Pressure and Follow-Up Documented Does Patient Have Any of the Following: Active Dx of HTN Blood Pressure Classification: Hypertensive Reading Systolic Measurement: 154 Diastolic Measurement: 93 Screening for High Blood Pressure: Patient Exclusion, Hx of HTN [G9744] - Advance Directives Quality Measure: Measure #47: Care Plan Advance Directives Established: No Advance Directives Information Provided To Patient: No Advance Directives on File: Yes Living Will: Yes Power of Operator Receptionist: Yes Power of Operator Receptionist Name: Naomi Nation Advance Care Planning: <Care Plan/Decision Maker Documented; Discussed & Documented> [1123F] - Elder Abuse Suspicion Index Screening: Elder Abuse Suspicion Index Screening Rely on people for bathing, dressing, shopping, banking, etc: No Prevented from getting food, clothes, medication, etc: No Made to feel shamed or threatened by someone: No Forced to sign papers or use money against will: No Feel afraid, touched in ways not wanted or hurt physically: No Poor eye contact, withdrawn, malnourished, cuts or bruises: No Screening Result: Negative result EASI Reference Information: Sid ROSE, Jatinder Parekh, Elina Matt, Victor Hugo Savage.Development and validation of a tool to assist physicians identification of elder abuse: The Elder Abuse Suspicion Index (EASI ). Journal of Elder Abuse and Neglect, 2008; 20 (3): 276-300. - Elder Maltreatment Screen Quality Measures: Elder Maltreatment Screen and Follow-Up Plan Elder Maltreatment Screen: <Negative, No Follow-Up Plan Required> [G8734]
[2019-06-21] MEDS ORDERED: ASPIRIN 81 MG CHEWABLE TABLET PO SCH (22:00)
== END 2019-06-21 16:53 | disposition home health service (06) ==
LOC: ER 09:39 → INTOOBSV 12:51 → MEDSURG 12:51
PROVIDERS: ADMIT Internal Medicine; ATTEND Internal Medicine
DX: M54.41 Lumbago with sciatica, right side (principal); E03.9 Hypothyroidism, unspecified; K21.9 Gastro-esophageal reflux disease without esophagitis; I25.2 Old myocardial infarction; Z66 Do not resuscitate; Z29.9 Encounter for prophylactic measures, unspecified
CPT/HCPCS: 74176; 80048; 81001; 85025; 93005; 93010; 96365; 96374; 96376; 99220; 99285; J1650; J7512

== ENCOUNTER 2019-10-10 19:03 | Observation (INO) | payer BC ==
[2019-10-10] MEDS ORDERED: MORPHINE SULFATE 5 MG/ML VIAL IVP ONE (19:07)
[2019-10-10] MEDS ORDERED: ACETAMINOPHEN 1,000 MG/100 ML BTL IVPB ONE (19:07)
--- NOTE | 2019-10-10 19:13 | Emergency Department Record ---
History of Present Illness - General Chief Complaint: Back Pain/Injury Stated Complaint: LOWER BACK/BUTT PAIN Time Seen by Provider: 10/10/19 19:06 Source: Patient, Family Mode of Arrival: Wheelchair Limitations: No limitations - History of Present Illness Initial Comments: 74 yo female presents with low back pain. The patient was at a local restaurant eating diner. She started to stand up to go to the restroom and her lower back "locked up" on her. She has pain across the lower back into the glutteal areas. No weakness or numbness. No abdominal pain. She has had similar pain in the past. She states she has had sciatica in the past. No weakness. No recent illness. She had mild pain that was fairly unremarkable during the day. It hurts to make any movement. MD Complaint: Back pain -: Minutes(s) Place: Other (Restaurant) Radiation: Buttocks Severity: Severe Quality: Aching, Sharp, Stabbing Consistency: Constant Improves With: Immobilization Worsens With: Movement Context: Other (Onset while trying to stand up at a restaurant) Associated Symptoms: Denies other symptoms - Related Data Home Medications Medication Instructions Recorded Confirmed Last Taken Losartan Potassium 1 tab PO DAILY 10/10/19 10/10/19 10/10/19 Rosuvastatin Calcium [Crestor] 1 tab PO DAILY 10/10/19 10/10/19 10/10/19 Allergies Allergy/AdvReac Type Severity Reaction Status Date / Time Sulfa (Sulfonamide Allergy Intermediate SWELLING Verified 06/19/19 09:51 Antibiotics) OF THE FACE Tetracyclines Allergy RASH Verified 10/10/19 19:33 Review of Systems Constitutional: Denies: Chills, Fever, Malaise, Weakness Eyes: Denies: Eye discharge ENT: Denies: Congestion, Throat pain Respiratory: Denies: Cough, Dyspnea Cardiovascular: Denies: Chest pain, Palpitations, Syncope Endocrine: Denies: Fatigue Gastrointestinal: Denies: Abdominal pain, Diarrhea, Nausea, Vomiting Genitourinary: Denies: Dysuria, Urgency Musculoskeletal: Reports: Arthralgia, Back pain, Myalgia. Denies: Joint swelling, Neck pain Skin: Denies: Bruising, Change in color, Rash Neurological: Denies: Headache Psychiatric: Denies: Anxiety Hematological/Lymphatic: Denies: Easy bleeding, Easy bruising Past Medical History - SOCIAL HISTORY Smoking Status: Never smoker Drug Use: None - RESPIRATORY Hx Respiratory Disorders: No - CARDIOVASCULAR Hx Cardio Disorders: Yes Hx Heart Attack: Yes (11/09/18) - NEURO Hx Neuro Disorders: No - GI Hx GI Disorders: Yes Hx Reflux: Yes - Hx Genitourinary Disorders: No - ENDOCRINE Hx Endocrine Disorders: Yes Hx Thyroid Disease: Yes - MUSCULOSKELETAL Hx Musculoskeletal Disorders: No - PSYCH Hx Psych Problems: No - HEMATOLOGY/ONCOLOGY Hx Hematology/Oncology Disorders: No Physical Exam - General General Appearance: Alert, Oriented x3, Cooperative, No acute distress Limitations: No limitations - Head Head exam: Atraumatic, Normal inspection - Eye Eye exam: Normal appearance. negative: Conjunctival injection - ENT ENT exam: Normal exam Ear exam: Normal external inspection Nasal Exam: Normal inspection Mouth exam: Normal external inspection - Neck Neck exam: Normal inspection. negative: Tenderness - Respiratory Respiratory exam: Normal lung sounds bilaterally. negative: Respiratory distress, Rhonchi, Stridor, Wheezes - Cardiovascular Cardiovascular Exam: Regular rate, Normal rhythm, Normal heart sounds - GI/Abdominal GI/Abdominal exam: Soft. negative: Distended, Guarding, Pulsatile mass, Rebound, Rigid, Tenderness - Rectal Rectal exam: Deferred - exam: Deferred - Extremities Extremities exam: Normal inspection, Full ROM. negative: Calf tenderness, Pedal edema, Tenderness - Back Back exam: Reports: Normal inspection, Muscle spasm, Paraspinal tenderness, Tenderness, Other (tender across the lower back, pain with any movement, consistent with spasm). Denies: CVA tenderness (R), CVA tenderness (L), Full ROM - Neurological Neurological exam: Alert, Oriented X3, Reflexes normal. negative: Altered, Motor sensory deficit - Psychiatric Psychiatric exam: Normal affect, Normal mood. negative: Agitated, Anxious - Skin Skin exam: Dry, Intact, Normal color, Warm Course - Reevaluation(s) Reevaluation #1: 10/10/19 19:16 EMR reviewed Admission 06/19/[address] completed at that time. 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 L3 round lesion in vertebral body recommend MRI. Possible hemangioma. Spinal stenosis. No aneurysm. 10/10/19 19:19 10/10/19 20:01 The patient is improved but pain not controlled She lives along and is not safe for DC I SW Mirlande Caraballo about admission for pain control, physical therapy evaluation Medical Decision Making - Lab Data Result diagrams: 10/10/19 19:15 10/10/19 19:15 Disposition Disposition: Admit Clinical Impression: Lumbar pain Sciatica Qualifiers: Laterality: unspecified laterality Qualified Code(s): M54.30 - Sciatica, unspecified side Urinary tract infection Qualifiers: Urinary tract infection type: site unspecified Hematuria presence: without hematuria Qualified Code(s): N39.0 - Urinary tract infection, site not specified Disposition: Still a Patient at [facility] Decision to Admit: Admit from ER Decision to Admit Date: 10/10/19 Decision to Admit Time: 20:00 Condition: (2) Stable Forms: Patient Portal Access Time of Disposition: 20:01 Quality - Quality Measures Quality Measures: N/A - Blood Pressure Screening Does Patient Have Any of the Following: Active Dx of HTN Blood Pressure Classification: Pre-Hypertensive BP Reading Systolic Measurement: 151 Diastolic Measurement: 81 Screening for High Blood Pressure: Patient Exclusion, Hx of HTN [G9744]
[2019-10-10 19:30] LABS: ABSOLUTE NEUTROPHIL COUNT 6.12; BASO % 0.5 % (0-6); EOS % 2.4 % (0-6); HEMATOCRIT 42.3 % (35.0-47.0); HEMOGLOBIN 13.2 gm/dl (11.6-16.0); LYMPH % 20.9 % (16-45); MEAN CELL VOLUME 94.8 fl (81-97); MEAN CORPUSCULAR HEMOGLOBIN 29.6 pg (27-33); MEAN CORPUSCULAR HGB CONC 31.2 g/dl (32-36); MEAN PLATELET VOLUME 11.2 fl (7.4-10.4); MONO % 6.2 % (0-9); PLATELET COUNT 226 K/uL (130-400); RED BLOOD COUNT 4.46 M/uL (3.80-5.40); RED CELL DISTRIBUTION WIDTH 14.3 % (11.5-14.5); WHITE BLOOD COUNT W/O DIFF 8.7 K/uL (4.2-12.2)
[2019-10-10 19:33] LABS: URINE APPEARANCE CLEAR; URINE BILIRUBIN NEGATIVE (NEGATIVE); URINE COLOR YELLOW; URINE GLUCOSE (UA) NEGATIVE (NEGATIVE)
[2019-10-10 19:34] LABS: URINE BLOOD TRACE (NEGATIVE); URINE KETONE NEGATIVE (NEGATIVE); URINE LEUKOCYTE ESTERASE MODERATE (NEGATIVE); URINE NITRITE NEGATIVE (NEGATIVE); URINE PROTEIN NEGATIVE (NEGATIVE); URINE UROBILINOGEN 0.2 E.U./dL (0.20 - 1.00)
[2019-10-10 19:42] LABS: URINE BACTERIA FEW; URINE EPITHELIAL CELLS 0 - 2 (FEW); URINE HYALINE CAST RARE /lpf; URINE RBC 0 - 2 (NONE SEEN); URINE TRANSITIONAL EPI CELLS 0 - 2 /hpf
[2019-10-10 19:44] LABS: CREATININE 1.3 mg/dL (0.5-0.9)
[2019-10-10] MEDS ORDERED: CEFTRIAXONE 1GM/50ML BAG 1 GM/50 ML BAG IVPB ONE (19:58)
[2019-10-10] MEDS ORDERED: ONDANSETRON HCL IV 4 MG/2 ML VIAL IVP ONE (20:15)
[2019-10-10] MEDS ORDERED: MORPHINE SULFATE 5 MG/ML VIAL IVP PRN (20:34)
[2019-10-10] MEDS ORDERED: CYCLOBENZAPRINE 10MG TABLET PO PRN (20:34)
[2019-10-10] MEDS ORDERED: ONDANSETRON HCL IV 4 MG/2 ML VIAL IVP PRN (20:34)
[2019-10-10] MEDS: CEFTRIAXONE 1GM/50ML BAG 1 GM/50 ML BAG IVPB SCH (21:58)
[2019-10-10] MEDS: ACETAMINOPHEN 1,000 MG/100 ML BTL IVPB SCH (21:59)
[2019-10-10] MEDS ORDERED: ASPIRIN 81 MG CHEWABLE TABLET PO SCH (22:00)
[2019-10-10] MEDS: CARVEDILOL 3.125 MG TABLET PO SCH (22:02)
[2019-10-11] MEDS: ACETAMINOPHEN 1,000 MG/100 ML BTL IVPB SCH ×2 (03:14→08:46)
[2019-10-11] MEDS ORDERED: PANTOPRAZOLE SODIUM 40 MG TABLET PO SCH (07:00)
[2019-10-11] MEDS: CEFTRIAXONE 1GM/50ML BAG 1 GM/50 ML BAG IVPB SCH (09:30)
[2019-10-11] MEDS ORDERED: AMLODIPINE BESYLATE 5MG TAB PO SCH (10:00)
[2019-10-11] MEDS ORDERED: LOSARTAN POTASSIUM 25 MG TABLET PO SCH (10:00)
[2019-10-11] MEDS ORDERED: ROSUVASTATIN CALCIUM PO SCH (10:00)
[2019-10-11] MEDS ORDERED: LEVOTHYROXINE SODIUM 50 MCG TABLET PO SCH (10:00)
[2019-10-11] MEDS: CARVEDILOL 3.125 MG TABLET PO SCH (10:11)
--- NOTE | 2019-10-11 10:22 | History & Physical ---
History of Present Illness - Date of Service Date of Service for History & Physical: 10/11/19 - History of Present Illness Admitting Diagnosis: Intractable back pain, urinary tract infection History of Present Illness: twisted and developed low back pain and evaluated in the ED and an incidental UTI found and she was admitted for pain control. Patient had a similiar episode in jun and she had a CT than and showed osteoarthritis and some spinal stenosis Travel Screening - Travel/Exposure Within Last 30 Days Have you traveled within the last 30 days?: No - Travel/Exposure Within Last Year Have you traveled outside the [place] in the last year?: No - Additonal Travel Details Have you been exposed to anyone with a communicable illness?: No - Travel Symptoms Symptom Screening: None Review of Systems Constitutional: Denies: Chills, Fever, Malaise, Weakness Eyes: Denies: Eye discharge ENT: Denies: Congestion, Throat pain Respiratory: Denies: Cough, Dyspnea Cardiovascular: Denies: Chest pain, Palpitations, Syncope Endocrine: Denies: Fatigue Gastrointestinal: Denies: Abdominal pain, Diarrhea, Nausea, Vomiting Genitourinary: Denies: Dysuria, Urgency Musculoskeletal: Reports: Arthralgia, Back pain, Myalgia. Denies: Joint swel ling, Neck pain Skin: Denies: Bruising, Change in color, Rash Neurological: Denies: Headache Psychiatric: Denies: Anxiety Hematological/Lymphatic: Denies: Easy bleeding, Easy bruising Past Medical History - SOCIAL HISTORY Smoking Status: Never smoker Alcohol Use: None Drug Use: None - RESPIRATORY Hx Respiratory Disorders: No Comment:: bilateral lung biopsies - CARDIOVASCULAR Hx Cardio Disorders: Yes Hx Heart Attack: Yes (11/09/18) - NEURO Hx Neuro Disorders: No - GI Hx GI Disorders: Yes Hx Reflux: Yes - Hx Genitourinary Disorders: No - ENDOCRINE Hx Endocrine Disorders: Yes Hx Thyroid Disease: Yes - MUSCULOSKELETAL Hx Musculoskeletal Disorders: No Hx Back Injury: (back pain) - PSYCH Hx Psych Problems: No - HEMATOLOGY/ONCOLOGY Hx Hematology/Oncology Disorders: No Family Medical History Any Significant Family History?: No H&P Meds/Allergies - Allergies Allergies: Allergies Allergy/AdvReac Type Severity Reaction Status Date / Time Sulfa (Sulfonamide Allergy Intermediate SWELLING Verified 06/19/19 09:51 Antibiotics) OF THE FACE Tetracyclines Allergy RASH Verified 10/10/19 19:33 - Home Medications Home Medications Medication Instructions Recorded Confirmed Last Taken Losartan Potassium 1 tab PO DAILY 10/10/19 10/10/19 10/10/19 Rosuvastatin Calcium [Crestor] 1 tab PO DAILY 10/10/19 10/10/19 10/10/19 - Active Medications Active Medications: Current Medications Amlodipine Besylate (Norvasc) 5 mg PO DAILY [facility] Last Admin: 10/11/19 10:11 Dose: 5 mg Documented by: Aspirin (Aspirin Chewable) 81 mg PO DAILY [facility] Last Admin: 10/11/19 10:11 Dose: 81 mg Documented by: Atorvastatin Calcium (Lipitor) 20 mg PO QHS [facility] Carvedilol (Coreg) 6.25 mg PO DAILY [facility] Last Admin: 10/11/19 10:11 Dose: 6.25 mg Documented by: Cyclobenzaprine HCl (Flexeril) 10 mg PO DAILY PRN PRN Reason: MUSCLE SPASMS Furosemide (Lasix) 20 mg PO BID [facility] Acetaminophen (Ofirmev) 1,000 mg in 100 mls @ 400 mls/hr IVPB Q6H [facility] Last Infusion: 10/11/19 09:32 Dose: Infused Documented by: CEFTRIAXONE 1GM/50ML BAG (Ceftriaxone 1 Gm-D5w Bag) 1 gm in 50 mls @ 100 mls/hr IVPB Q12H [facility] Last Infusion: 10/11/19 10:12 Dose: Infused Documented by: Levothyroxine Sodium (Synthroid) 50 mcg PO 0600 [facility] Last Admin: 10/11/19 10:11 Dose: 50 mcg Documented by: Losartan Potassium (Cozaar) 25 mg PO DAILY [facility] Last Admin: 10/11/19 10:11 Dose: 25 mg Documented by: Morphine Sulfate (Morphine Sulfate) 2.5 mg IVP Q4H PRN PRN Reason: PAIN - MILD (1-4) Stop: 10/17/19 20:35 Ondansetron HCl (Zofran) 4 mg IVP Q6H PRN PRN Reason: NAUSEA Last Admin: 10/11/19 00:56 Dose: 4 mg Documented by: [facility]op[facility]) [facility] Admin: 10/11/19 06:31 Dose: 40 mg Documented by: Physical Exam - Vital Signs Vital Signs: Vital Signs - Last 24 Hrs Temp Pulse Pulse Resp BP BP Pulse Ox 10/11/19 07:27 97.5 F L 80 16 120/80 99 10/11/19 04:42 97.8 F 82 18 114/63 96 10/10/19 21:00 16 10/10/19 20:34 98.0 F 85 18 128/81 96 10/10/19 20:13 85 139/80 98 10/10/19 19:32 97.8 F 10/10/19 19:05 91 H 24 151/81 98 - General General Appearance: Alert, Oriented x3, Cooperative, No acute distress Limitations: No limitations - Head Head exam: Atraumatic, Normal inspection - Eye Eye exam: Normal appearance. negative: Conjunctival injection - ENT ENT exam: Normal exam Ear exam: Normal external inspection Nasal Exam: Normal inspection Mouth exam: Normal external inspection - Neck Neck exam: Normal inspection. negative: Tenderness - Respiratory Respiratory exam: Normal lung sounds bilaterally. negative: Respiratory distress, Rhonchi, Stridor, Wheezes - Cardiovascular Cardiovascular Exam: Regular rate, Normal rhythm, Normal heart sounds - GI/Abdominal GI/Abdominal exam: Soft. negative: Distended, Guarding, Pulsatile mass, Rebound, Rigid, Tenderness - Rectal Rectal exam: Deferred - exam: Deferred - Extremities Extremities exam: Normal inspection, Full ROM. negative: Calf tenderness, Pedal edema, Tenderness - Back Back exam: Reports: Normal inspection, Muscle spasm, Paraspinal tenderness, Tenderness, Other (tender across the lower back, pain with any movement, consistent with spasm). Denies: CVA tenderness (R), CVA tenderness (L), Full R OM - Neurological Neurological exam: Alert, Oriented X3, Reflexes normal. negative: Altered, Motor sensory deficit - Psychiatric Psychiatric exam: Normal affect, Normal mood. negative: Agitated, Anxious - Skin Skin exam: Dry, Intact, Normal color, Warm Results - Labs Result Diagrams: 10/10/19 19:15 10/10/19 19:15 Labs Last 24 Hours: Laboratory Results - last 24 hr 10/10/19 10/10/19 10/10/19 19:15 19:15 19:15 WBC 8.7 RBC 4.46 Hgb 13.2 Hct 42.3 MCV 94.8 MCH 29.6 MCHC 31.2 L RDW 14.3 Plt Count 226 MPV 11.2 H Gran % 70.0 Lymphocytes % 20.9 Monocytes % 6.2 Eosinophils % 2.4 Basophils % 0.5 Absolute Neutrophils 6.12 Sodium 142 Potassium 3.3 L Chloride 101 Carbon Dioxide 23.0 Anion Gap 18.0 H BUN 17 Creatinine 1.3 H Estimated GFR 42 Random Glucose 211 H Calcium 10.0 Urine Color Yellow Urine Appearance Clear Urine pH 6.0 Ur Specific [place] 1.010 Urine Protein Negative Urine Glucose (UA) Negative Urine Ketones Negative Urine Blood Trace Urine Nitrite Negative Urine Bilirubin Negative Urine Urobilinogen 0.2 Ur Leukocyte Esterase Moderate H Urine RBC 0 - 2 Urine WBC 3 - 5 Ur Epithelial Cells 0 - 2 Ur Transition Epith Cell 0 - 2 Urine Bacteria Few Hyaline Casts Rare VTE H&P Assessment - Risk for VTE Risk for VTE: Yes Risk Level: Moderate Risk Assessment Date: 10/11/19 Risk Assessment Time: 10:23 VTE Orders Placed or Will Be Placed: Yes Plan - Detailed Diagnosis and Plan (1) Lumbar pain Current Visit: Yes Status: Acute Base Code: M54.5 - LOW BACK PAIN Priority: High (2) Urinary tract infection Current Visit: Yes Status: Acute Qualifiers: Urinary tract infection type: site unspecified Hematuria presence: without hematuria Qualified Code(s): N39.0 - Urinary tract infection, site not specified Base Code: N39.0 - URINARY TRACT INFECTION, SITE NOT SPECIFIED Priority: Medium (3) DVT prophylaxis Current Visit: No Status: Acute Base Code: Z29.9 - ENCOUNTER FOR PROPHYLACTIC MEASURES, UNSPECIFIED Priority: Medium Comment: 06/21/19 -lovenox 30mg SQ (lower dose r/t kidney function) (4) Intractable low back pain Current Visit: No Status: Acute Base Code: M54.5 - LOW BACK PAIN Priority: High Comment: 06/21/19 -PT has evaluated, needs subacute rehab or home PT -pt has insurance issues with facilities taking her insurance, 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 as this facility does not take her insurance and pt has declined transfer to other facility -pain better controlled but right leg remains weaker 06/20/19 -pt reports better pain control with gabapentin but still painful to ambulate and TTP -gabapenting increased to BID, pt continues to need morphine for pain upon returning from [facility] -PT eval tomorro 06/19/19 -pt reported sudden onset low back pain starting within 24 hrs of arriving to ER -pt denies previous injury, no recent fall or strain -CT back shows DDD with possible T3 lesion, recomend MRI for follow up (PCP) -pt given morphine for pain in ER, but unable to ambualte r/t pain w - Disposition patient was started on rocephin and tylenol and she was admitted to observation
[2019-10-11] MEDS ORDERED: ENOXAPARIN 30 MG/0.3 ML SYR SQ SCH (10:30)
--- NOTE | 2019-10-11 10:32 | Discharge Summary ---
Providers Discharge Summary Date: 10/11/19 Date of admission: 10/10/19 20:29 Expected Date of Discharge: 10/11/19 Attending physician: Leonard Hayes Primary care physician: RADHA HASSAN D.O. Physical Exam - Vital Signs Vital Signs: Vital Signs - Last 24 Hrs Temp Pulse Pulse Resp BP BP Pulse Ox 10/11/19 07:27 97.5 F L 80 16 120/80 99 10/11/19 04:42 97.8 F 82 18 114/63 96 10/10/19 21:00 16 10/10/19 20:34 98.0 F 85 18 128/81 96 10/10/19 20:13 85 139/80 98 10/10/19 19:32 97.8 F 10/10/19 19:05 91 H 24 151/81 98 - General General Appearance: Alert, Oriented x3, Cooperative, No acute distress Limitations: No limitations - Head Head exam: Atraumatic, Normal inspection - Eye Eye exam: Normal appearance. negative: Conjunctival injection - ENT ENT exam: Normal exam Ear exam: Normal external inspection Nasal Exam: Normal inspection Mouth exam: Normal external inspection - Neck Neck exam: Normal inspection. negative: Tenderness - Respiratory Respiratory exam: Normal lung sounds bilaterally. negative: Respiratory distress, Rhonchi, Stridor, Wheezes - Cardiovascular Cardiovascular Exam: Regular rate, Normal rhythm, Normal heart sounds - GI/Abdominal GI/Abdominal exam: Soft. negative: Distended, Guarding, Pulsatile mass, Rebound, Rigid, Tenderness - Rectal Rectal exam: Deferred - exam: Deferred - Extremities Extremities exam: Normal inspection, Full ROM. negative: Calf tenderness, Pedal edema, Tenderness - Back Back exam: Reports: Normal inspection, Muscle spasm, Paraspinal tenderness, Tenderness, Other (tender across the lower back, pain with any movement, consistent with spasm). Denies: CVA tenderness (R), CVA tenderness (L), Full ROM - Neurological Neurological exam: Alert, Oriented X3, Reflexes normal. negative: Altered, Motor sensory deficit - Psychiatric Psychiatric exam: Normal affect, Normal mood. negative: Agitated, Anxious - Skin Skin exam: Dry, Intact, Normal color, Warm Hospitalization - Hospitalization Admission Diagnosis: Intractable back pain, urinary tract infection - Problem List/Discharge Diagnosis (1) Lumbar pain Current Visit: Yes Status: Acute Base Code: M54.5 - LOW BACK PAIN (2) Urinary tract infection Current Visit: Yes Status: Acute Discharge Diagnosis: Urinary tract infection type: site unspecified Hematuria presence: without hematuria Qualified Code(s): N39.0 - Urinary tract infection, site not specified Base Code: N39.0 - URINARY TRACT INFECTION, SITE NOT SPECIFIED (3) DVT prophylaxis Current Visit: No Status: Acute Base Code: Z29.9 - ENCOUNTER FOR PROPHYLACTIC MEASURES, UNSPECIFIED Comment: 06/21/19 -lovenox 30mg SQ (lower dose r/t kidney function) (4) Intractable low back pain Current Visit: No Status: Acute Base Code: M54.5 - LOW BACK PAIN Comment: 06/21/19 -PT has evaluated, needs subacute rehab or home PT -pt has insurance issues with facilities taking her insurance, 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 as this facility does not take her insurance and pt has declined transfer to other facility -pain better controlled but right leg remains weaker 06/20/19 -pt reports better pain control with gabapentin but still painful to ambulate and TTP -gabapenting increased to BID, pt continues to need morphine for pain upon returning from [facility] -PT eval tomorro 06/19/19 -pt reported sudden onset low back pain starting within 24 hrs of arriving to ER -pt denies previous injury, no recent fall or strain -CT back shows DDD with possible T3 lesion, recomend MRI for follow up (PCP) -pt given morphine for pain in ER, but unable to ambualte r/t pain w - Disposition patient was started on rocephin and tylenol and she was admitted to observation - Hospitalization Course Abnormal Labs: Abnormal Lab Results 10/10/19 10/10/19 10/10/19 Range/Units 19:15 19:15 19:15 MCHC 31.2 L (32-36) g/dl MPV 11.2 H (7.4-10.4) fl Potassium 3.3 L (3.4-4.5) mmol/L Anion Gap 18.0 H (7-16) Creatinine 1.3 H (0.5-0.9) mg/dL Random Glucose 211 H (74-109) mg/dL Ur Leukocyte Esterase Moderate H (NEGATIVE) Condition at Discharge: (2) Stable VTE Discharge VTE Reason For No Overlap Therapy: Not Indicated Discharge Medications - Discharge Medications Prescriptions: Cephalexin [Keflex] 500 mg PO QID #40 cap Home Medications: Ambulatory Orders Amlodipine Besylate [Norvasc] 5 mg PO DAILY 06/19/19 [Last Taken 10/10/19] Aspirin 81 mg PO QHS 06/19/19 [Last Taken 10/10/19] Carvedilol [Coreg] 6.25 mg PO DAILY 06/19/19 [Last Taken 10/10/19] Cyclobenzaprine HCl [Flexeril] 10 mg PO DAILY PRN 06/19/19 [Last Taken 10/10/19] Furosemide [Lasix] 20 mg PO BID 06/19/19 [Last Taken 10/10/19] Levothyroxine Sodium 50 mcg PO DAILY 06/19/19 [Last Taken 10/10/19] Omeprazole [Prilosec] 20 mg PO DAILYAC 06/19/19 [Last Taken 10/10/19] Losartan Potassium 1 tab PO DAILY 10/10/19 [Last Taken 10/10/19] Rosuvastatin Calcium [Crestor] 1 tab PO DAILY 10/10/19 [Last Taken 10/10/19] Cephalexin [Keflex] 500 mg PO QID #40 cap 10/11/19 [Last Taken Unknown] Cyclobenzaprine HCl [Flexeril] 10 mg PO DAILY PRN tablet 10/11/19 [Last Taken Unknown] Furosemide [Lasix] 20 mg PO BID tablet 10/11/19 [Last Taken Unknown] Discharge Plan - Discharge Instructions Activity at Discharge: Increase Activity as Tolerated Diet at Discharge: Low Salt Diet Additional Instructions: Please call Dr. Hassan to schedule a one week hospital follow up appointment after discharge. Follow up with your Disas[employer]er Product Dr. Nunn as recommended. tylenol 650 mg every 4 hours as needed flexeril 10 mg three times a day heat to back three times a day low heat Quality Measures - Quality Measures Quality Measures: Advance Directives, Documentation of Current Medications in Medical Record, Elder Maltreatment Screen and Follow-Up Plan, Screening for High Blood Pressure and F/U Documented - Current Medications Quality Measure: Measure #130: Documentation of Current Medications Documentation of Current Medications: <Current Medications Documented/Reviewed> [G8427] - Blood Pressure Screening Quality Measure: Screening for High Blood Pressure and Follow-Up Documented Does Patient Have Any of the Following: Active Dx of HTN Blood Pressure Classification: Pre-Hypertensive BP Reading Systolic Measurement: 151 Diastolic Measurement: 81 Screening for High Blood Pressure: Patient Exclusion, Hx of HTN [G9744] - Advance Directives Quality Measure: Measure #47: Care Plan Advance Directives Established: No Advance Directives Information Provided To Patient: No Advance Directives on File: Yes Living Will: Yes Power of Delivery Supervisor: Yes Power of Delivery Supervisor Name: Naomi Nation Advance Care Planning: <Care Plan/Decision Maker Documented; Discussed & Documented> [[id number]] - Elder Abuse Suspicion Index Screening: Elder Abuse Suspicion Index Screening Rely on people for bathing, dressing, shopping, banking, etc: No Prevented from getting food, clothes, medication, etc: No Made to feel shamed or threatened by someone: No Forced to sign papers or use money against will: No Feel afraid, touched in ways not wanted or hurt physically: No Poor eye contact, withdrawn, malnourished, cuts or bruises: No Screening Result: Negative result EASI Reference Information: Sid ROSE, Jatinder C, Elina D, Victor Hugo Savage.Development and validation of a tool to assist physicians identification of elder abuse: The Elder Abuse Suspicion Index (EASI ). Journal of Elder Abuse and Neglect, 2008; 20 (3): 276-300. - Elder Maltreatment Screen Quality Measures: Elder Maltreatment Screen and Follow-Up Plan Elder Maltreatment Screen: <Negative, No Follow-Up Plan Required> [G8709]
--- NOTE | 2019-10-11 10:36 | Physical Therapy Tx Note ---
Physical Therapy Tx Note - Treatment Note Physical Therapy Tx Note: Detail (PT received an order for evaluation. When PT arrived to patient's room, pt.'s nurse stated pt. was being discharged. PT reviewed patient's history with her and asked her if she had any concerns with mobility. The patient stated she did not and has been ambulating with walker in her room without difficulty. The patient states she no longer has lower back pain that she had initially on 10/10. She has minimal soreness only in lower back. The patient states she had Home PT after previous admission in June of 2019 and no was discharged. Pt. felt she did not require PT at this time. CM was notified that patient declined ongoing PT services .)
[2019-10-11] MEDS ORDERED: ASPIRIN 81 MG CHEWABLE TABLET PO SCH (11:00)
[2019-10-11] MEDS ORDERED: FUROSEMIDE 20 MG TABLET PO SCH (11:00)
[2019-10-11] MEDS ORDERED: ATORVASTATIN 20 MG TABLET PO SCH (22:00)
== END 2019-10-11 11:37 | disposition home or self-care (01) ==
LOC: ER 19:03 → MEDSURG 20:29
PROVIDERS: ADMIT Internal Medicine; ATTEND Emergency Medicine
DX: M54.30 Sciatica, unspecified side (principal); N39.0 Urinary tract infection, site not specified; E03.9 Hypothyroidism, unspecified
CPT/HCPCS: 80048; 81001; 85025; 96365; 96366; 96375; 99285; J0696; J2405